=== PATIENT | male | born 1995 | race Caucasian/White ===

== ENCOUNTER 2025-05-01 19:24 | Inpatient (IN) | payer OTHER, SELFPAY ==
--- OUTSIDE RECORDS SUMMARY | 2025-05-01 19:30 | XMS_ITS | Encounter Summary ---
Author Organization [facility] Address [address] [place] [address] Care Team Providers Care Furrier Designer Name Role Phone Mabel Ortega NP Primary Care Provider [phone] Encounter Details Date Type Department Care Team (Late st Contact Info) Description 04/01/2025 Ophth Exam [facility] Ophthalmology [address] [place] [address] Bebeto Riggs MD [address] [place] [address] Social History Tobacco Use Types Packs/Day Years Used Date Smoking Tobacco: Never Smokeless Tobacco: Never Comments:intubated, sedated Alcohol Use Standard Drinks/Week Comments Not Currently 0 (1 standard drink = 0.6 oz pur e alcohol) Sex and Gender Information Value Date Recorded Sex Assigned at Male 10/22/2024 5:13 PM EST Legal Sex Male 1:42 AM EDT Gender Identity Not on file Sexual Orientation Not on file documented as of this encounter Plan of Treatment Not on file documented as of this encounter Visit Diagnoses Not on filedocumented in this encounter Additional Health Concerns Infection Onset Date Last Indicated Resolved Time R/O Respiratory Virus Infection 04/30/2025 04/30/2025 8:50 AM EDT R/O Influenza 04/30/2025 04/30/2025 04/30/2025 8:5 0 AM EDT COVID-19 - Suspected infection 04/30/2025 04/30/2025 04/30/2025 8:50 AM EDT documented as of this encounter Care Teams Furrier Designer Relationship Specialty Start Date End Date Mabel Ortega NP [address] [place] [phone] PCP - General 04/09/25 04/22/25 documented as of this encounter
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
--- OUTSIDE RECORDS SUMMARY | 2025-05-01 19:30 | XMS_ITS | Encounter Summary ---
Author Organization [facility] Address [address] [place] [address] Care Team Providers Care Managed Care Analyst Name Role Phone Moe Mccracken MD Primary Care Provider [phone] Pako Ross MD Primary Care Provider [facility] Unavailabl e Unavailable Encounter Details Date Type Department Care Team (Late st Contact Info) Description 01/25/2020 Orders Only [facility] Adult Medicine [address] [place] [phone] Iesha Mcdonnell, SUBACUTE NURSE Social History Tobacco Use Types Packs/Day Years Used Date Smoking Tobacco: Former Cigarettes Smokeless Tobacco: Never Alcohol Use Standard Drinks/Week Comments Not Currently 0 (1 standard drink = 0.6 oz pur e alcohol) Sex and Gender Information Value Date Recorded Sex Assigned at Not on file Legal Sex Male 8:37 PM EST Gender Identity Not on file Sexual Orientation Not on file 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 Unable to assess 01/24/2020 3:39 PM EDT documented as of this encounter Progress Notes * Moe Mccracken MD - 01/25/2020 1:36 PM EDT Diagnostic testing normal/stable. MyChart message sent encouraging follow up if symptoms persist. * Iesha Mcdonnell NP - 01/25/2020 1:36 PM EDT MyChart message sent, normal documented in this encounter Plan of Treatment Upcoming Encounters Date Type Department Care Team (Latest Contact Info) Description 09/30/2025 7:45 AM EST CPE - Comprehensive Physical Exam [facility] [address] [place] [phone] Yocasta Flynn PA [address] [place] [address] Return for CPE w/ any care team provider. documented as of this encounter Goals Goal Patient Goal Type Associated Problems Recent Progress Patient-Stated? Author Quit smoking / using tobacco Lifestyle No Lesli Saeed documented as of this encounter Procedures * Due to [place] state law, this organization might not be sharing negative HIV tests. Procedure Name Priority Date/Time Associated Diagnosis Comments C-REACTIVE PROTEIN (CRP) - INFLAMMATION STAT (All results called to provider) 01/25/2020 1:37 PM EDT Swelling of ankle, left Erythema of foot CBC INCLUDES DIFFERENTIAL AND PLATELET COUNT STAT (All results called to provider) 01/25/2020 1:37 PM EDT Swelling of ankle, left Erythema of foot VENIPUNCTURE STAT (All results called to provider) 01/25/2020 1:37 PM EDT Swelling of ankle, left Erythema of foot COMPREHENSIVE METABOLIC PANEL WITH GFR STAT (All results called to provider) 01/25/2020 1:37 PM EDT Swelling of ankle, left Erythema of foot NEISSERIA GONORRHOEAE (GC) RNA, TMA (URINE) STAT (All results called to provider) 01/25/2020 1:36 PM EDT Swelling of ankle, left Erythema of foot CHLAMYDIA TRACHOMATIS, RNA, TMA (URINE) STAT (All results called to provider) 01/25/2020 1:36 PM EDT Swelling of ankle, left Erythema of foot documented in this encounter Results * Due to [place] state law, this organization might not be sharing negative HIV tests. * CBC INCLUDES DIFFERENTIAL AND PLATELET COUNT (01/25/2020 1:37 PM EDT) WBC 6.4 3.8 - 10.8 K/uL [facility] Neutrophils # 3.3 1.5 - 7.8 K/uL [facility] Immature Granulocytes # 0.0 0.0 - 0.1 K/uL [facility] Lymphocytes # 1.9 0.9 - 3.9 K/uL [facility] Monocytes # 0.8 0.2 - 1.0 K/uL [facility] Eosinophils # 0.4 0.0 - 0.5 K/uL [facility] Basophils # 0.1 0.0 - 0.2 K/uL [facility] Neutrophils % 51.6 % [facility] Immature Granulocytes % 0.00 % [facility] Lymphocytes % 29.0 % [facility] Monocytes % 12.8 % [facility] Eosinophils % 5.8 % [facility] Basophils % 0.8 % [facility] RBC 4.70 4.20 - 5.80 M/uL [facility] Hemoglobin 13.3 13.2 - 17.1 g/dL [facility] Hematocrit 40.4 38.5 - 50.0 % [facility] MCV 86.0 80.0 - 100.0 fl [facility] MCH 28.3 27.0 - 33.0 pg [facility] MCHC 32.9 32.0 - 36.0 g/dL [facility] RDW 12.6 11.0 - 15.0 % [facility] PLT 211 140 - 400 K/uL [facility] 01/25/2020 1:37 PM EDT 01/25/2020 1:37 PM EDT Narrative [facility] - 01/25/2020 1:48 PM EDT Patient's primary care provider is: N/A Testing performed at: [facility], [address] [place] [address], [address], Press Tender: Av Vera MD Iesha Mcdonnell SUBACUTE NURSE LAB SAME DAY RESULT Final Re sult [address] [address] DIRECTOR Av Vera MD * COMPREHENSIVE METABOLIC PANEL WITH GFR (01/25/2020 1:37 PM EDT) Glucose 95 65 - 99 mg/dl [facility] Urea Nitrogen Blood (BUN) 9 7 - 25 mg/dL [facility] Creatinine 0.93 0.50 - 1.20 mg/dL [facility] Sodium 140 136 - 145 mmo/L [facility] Potassium 4.5 3.5 - 5.3 mmol/L [facility] Chloride 100 98 - 107 mmo/L [facility] Calcium 9.6 8.5 - 10.4 mg/dL [facility] Protein Total (Serum) 6.7 6.0 - 8.3 g/dL [facility] Albumin 4.5 3.5 - 5.3 g/dL [facility] Globulin 2 2 - 4 G/DL [facility] Bilirubin Total 0.47 0.00 - 1.20 mg/dL [facility] Alkaline phosphatase 51 40 - 115 U/L [facility] AST (SGOT) 29 <45 U/L [facility] ALT (SGPT) 21 <67 U/L [facility] Carbon dioxide 30 23 - 33 mmol/L [facility] GFR 104 >60 ml/min [facility] Comment:If the patient is Af rican Azerbaijani, please multiply result by 1.210 01/25/2020 1:37 PM EDT 01/25/2020 1:37 PM EDT Narrative [facility] - 01/25/2020 2:28 PM EDT Patient's primary care provider is: N/A Testing performed at: [facility], [address] [place] [address], [id number], Press Tender: Av Vera MD Iesha Mcdonnell NP LABORATORY Final Result Performing Organization Address [facility] de Phone Number [address] [address] DIRECTOR Av Vera MD * C-REACTIVE PROTEIN (CRP) - INFLAMMATION (01/25/2020 1:37 PM EDT) C reactive protein 2.8 0.0 - 8.0 mg/L [facility] 01/25/2020 1:37 PM EDT 01/25/2020 1:37 PM EDT Narrative [facility] - 01/25/2020 2:28 PM EDT Patient's primary care provider is: N/A Testing performed at: [facility], [address] [place] [address], [address], Press Tender: Av Vera MD Iesha Mcdonnell NP LABORATORY Final Result Performing Organization Address [facility] Phone Number [address] [address] DIRECTOR Av Vera MD * URIC ACID, SERUM (01/25/2020 1:37 PM EDT) Uric Acid Serum 4.9 4.0 - 8.0 mg/dL [facility] 01/25/2020 1:37 PM EDT 01/25/2020 1:37 PM EDT Narrative [facility] - 01/25/2020 2:28 PM EDT Patient's primary care provider is: N/A Testing performed at: [facility], [address] [place] [address], [address], Press Tender: Av Vera MD Iesha Mcdonnell NP LABORATORY Final Result [address] [address] DIRECTOR Av Vera MD * CHLAMYDIA TRACHOMATIS, RNA, TMA (URINE) (01/25/2020 1:36 PM EDT) Chlamydia trachomatis rRNA NOT DETECTED NOT DETECTED [facility] COMMENT SEE NOTE [facility] Comment: The analytical performance characteristics of this assay, when used to test SurePath(TM) specimens have been determined by [facility]. The modifications have not been cleared or approved by the FDA. This assay has been validated pursuant to the CLIA regulations and is used for clinical purposes. For additional information, please refer to https://Grovo.Jianjian/faq/YGV038 (This link is being provided for information/ educational purposes only.) 01/25/2020 1:36 PM EDT 01/26/2020 3:10 AM EDT Narrative Resulting Agency Comment [id number] Iesha Mcdonnell NP LABORATORY Final Result Performing Organization Address [facility] Co de Phone Number [facility] [address] [place] [address] * NEISSERIA GONORRHOEAE (GC) RNA, TMA (URINE) (01/25/2020 1:36 PM EDT) Neisseria Gonorrhoeae rRNA NOT DETECTED NOT DETECTED [facility] COMMENT SEE NOTE [facility] Comment: The analytical performance characteristics of this assay, when used to test SurePath(TM) specimens have been determined by [facility]. The modifications have not been cleared or approved by the FDA. This assay has been validated pursuant to the CLIA regulations and is used for clinical purposes. For additional information, please refer to https://Grovo.Jianjian/faq/YLB760 (This link is being provided for information/ educational purposes only.) 01/25/2020 1:36 PM EDT 01/26/2020 3:10 AM EDT Narrative Resulting Agency Comment [id number] Iesha Mcdonnell SUBACUTE NURSE LABORATORY Final Result [facility] [address] [place] [address] documented in this encounter Visit Diagnoses Diagnosis Swelling of ankle, left Erythema of foot Unspecified erythematous condition documented in this encounter Additional Health Concerns Infection Onset Date Last Indicated Resolved Time COVID-19 Rule-Out 11/28/2020 11/28/2020 11/28/2020 12:42 AM EST COVID-19 Rule-Out 11/28/2020 11/28/2020 11/28/2020 8:15 AM EST COVID-19 Rule-Out 12/02/2020 12/02/2020 12/02/2020 1:16 PM EST COVID-19 Rule-Out 12/05/2020 12/05/2020 12/05/2020 10:08 PM EST COVID-19 Rule-Out 12/08/2020 12/08/2020 12/08/2020 10:00 PM EDT documented as of this encounter Care Teams Managed Care Analyst Relationship Specialty Start Date End Date Moe Mccracken MD [address] [place] [phone] PCP - General Internal Medicine 12/10/15 02/07/20 Pako Rsos MD [address] [place] [address] PCP - General 02/08/20 [facility] Health Assistants 03/26/22 08/25/22 documented as of this encounter
--- OUTSIDE RECORDS SUMMARY | 2025-05-01 19:30 | XMS_ITS | Clinical Summary ---
Author Organization [facility] Address [address] [place] [address] Care Team Providers Care Civil Engineering Draftsperson Name Role Phone No, Pcp JOURNEYMAN POWER PLANT OPERATOR Primary Care Provider Unavailabl e Social History Tobacco Use Types Packs/Day Years Used Date Smoking Tobacco: Never Assessed Sex and Gender Information Value Date Recorded Sex Assigned at Not on file Legal Sex Male 12:31 PM EDT Gender Identity Not on file Sexual Orientation Not on file Plan of Treatment Health Maintenance Due Date Last Done Comments Depression: Screening Annual ly using PHQ-2/9 in Adults 18 yrs or above (or HM Modifier)([facility]) 12/11/2011 Hepatitis C Virus Infection in Adolescents and Adults: Screening (or Modifier) ([facility]) 12/11/2011 SDOH Screening Reminder: Rosario ually for all adults ([facility]) 12/11/2011 Tobacco Smoking Cessation: i n Adults excluding Women: Behavioral and Pharmacotherapy Interventions ([facility]) 12/11/2011 DTaP/Tdap/Td Vaccines ([facility]) (1 - Tdap) 2012 COVID-19 Vaccine Screening: Initial Series and Booster Status ([facility]) (2023- season) 2024 Flu Vaccination: Yearly for ages 18mos through 64 years (or Modifier)([facility]) 04/26/2025 Zoster/Shingles Vaccine Seri es Screening: Adults aged 18+ yrs (or HM Modifiers)([facility]) (1 of 2) 12/11/2043 Pneumococcal Vaccination Scr eening: Pts 0-19 & 19-49 yrs of age ([facility]) Aged Out No longer eligible based on patient's age to complete this topic Medical Devices Not on file [place] [address] [place] [address] PLAN Care Teams Civil Engineering Draftsperson Relationship Specialty Start Date End Date No, Pcp, JOURNEYMAN POWER PLANT OPERATOR N/A Do not use PCP - General Family Medicine 12/30/20
[2025-05-01 20:06] VITALS: BMI 18.9
[2025-05-01 20:10] VITALS: BP 105/62; PULSE 72; RESP 16; TEMP 36.2; O2SAT 97
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
[2025-05-02 08:00] VITALS: BP 115/59; PULSE 86; TEMP 36.6; O2SAT 99
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
[2025-05-02] MEDS: Magnesium Hydrox/Alum Hydrox 30 ML ORAL.SUSP PO (08:54)
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
[2025-05-02] MEDS: methADONE HCl 20 MG/2 ML ORAL.CONC 40 MG PO (11:08)
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
[2025-05-02 15:10] VITALS: BP 78/56; PULSE 52
[2025-05-02 15:38] VITALS: BP 87/54; PULSE 56
--- NOTE | 2025-05-02 15:42 | PC.ADMIT ---
BP assessed for scheduled afternoon medication administration. Decreased BP noted. Pt reported dizziness with position change. Medication held. Pt accepted PO fluids and snacks. Some improvement noted to BP on reassessment. Covering provider Jacqueline Pace [employer] notified.
[2025-05-02 16:13] VITALS: BP 80/51
[2025-05-02 20:00] VITALS: BP 88/45; PULSE 59; RESP 16; TEMP 37.7; O2SAT 100
[2025-05-02 21:12] VITALS: BP 75/36
[2025-05-03 08:00] VITALS: BP 101/51; PULSE 77; RESP 16; TEMP 36.4; O2SAT 100
[2025-05-03] MEDS: methADONE HCl 20 MG/2 ML ORAL.CONC 40 MG PO (08:11)
[2025-05-03 09:49] VITALS: BP 93/55
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
[2025-05-03 15:51] VITALS: BP 98/47
--- NOTE | 2025-05-03 16:14 | P.PNADD_ITS ---
Subjective Subjective Date of Service: 05/03/25 Reason For Visit: bipolar 1 disorder, generalized anxiety d/o Interim History: Patient seen in follow up for OUD He is laying in bed, awake, engaged in interview. He reports methadone has helped to reduce the most severe sx, and he is able to eat and get out of bed. Discussed increasing dose, but he declined and stated that his plan is to taper off prior to discharge. He shared that his recurrence of use was very recent and brief and he does not want to remain on MOUD. This medical writer encouraged patient to remain at this dose over the weekend, and start taper on Tuesday. Patient agreeable. Review of Systems Constitutional: Reports as per HPI and Reports lethargy Gastrointestinal: Denies loose stools and Denies nausea Musculoskeletal: Reports myalgias Mental Status Exam Mental Status Exam Level of Consciousness: Awake Patient Behavior: Appropriate and Cooperative Affect Description: Blunted Speech Pattern: Clear Thought Process: Intact Thought Content: positive for Intact Judgement: Fair Diagnostics Vital Signs (24Hr): Vital Signs - 24 hr 05/02/25 20:00 05/02/25 21:12 05/03/25 09:49 Temperature 99.9 F Pulse Rate 59 Respiratory Rate 16 Blood Pressure 88/45 L 75/36 L 93/55 L Pulse Oximetry 100 Oxygen Delivery Method Room Air 05/03/25 15:51 Temperature Pulse Rate Respiratory Rate Blood Pressure 98/47 L Pulse Oximetry Oxygen Delivery Method BMI result Body Mass Index 18.9 Medications Medications Current Medications Acetaminophen (Acetaminophen 325 Mg Tablet) 650 mg PO Q6H PRN PRN Reason: Headache/Pain, Scale 1-10 Al Hydroxide/Mg Hydroxide (Magnesium Hydrox/Alum Hydrox 30 Ml Oral.Susp) 30 ml PO Q6H PRN PRN Reason: Heartburn/Nausea Last Admin: 05/02/25 08:54 Dose: 30 ml Clonidine HCl (Clonidine Hcl 0.2 Mg Tablet) 0.2 mg PO TID KERVIN; Protocol Last Admin: 05/03/25 15:51 Dose: Not Given Diazepam (Diazepam 5 Mg Tablet) 10 mg PO TID PRN PRN Reason: Agitation Last Admin: 05/03/25 09:48 Dose: 10 mg Gabapentin (Gabapentin 600 Mg Tablet) 300 mg PO TID [facility]IN Last Admin: 05/03/25 15:51 Dose: 300 mg Hydroxyzine HCl (Hydroxyzine Hcl 25 Mg Tablet) 25 mg PO Q6H PRN PRN Reason: mild anxiety Last Admin: 05/02/25 21:09 Dose: 25 mg Lamotrigine (Lamotrigine 25 Mg Tablet) 25 mg PO BEDTIME [facility] Magnesium Hydroxide (Milk Of Magnesia 30 Ml Oral.Susp) 30 ml PO DAILY PRN PRN Reason: Constipation Methadone HCl (Methadone Hcl 20 Mg/2 Ml Oral.Conc) 40 mg PO DAILY@0800 [facility] Last Admin: 05/03/25 08:11 Dose: 40 mg Nicotine (Nicotine 21 Mg Patch.Td24) 21 mg TRANSDERMA DAILY PRN PRN Reason: nicotine craving Nicotine Polacrilex (Nicotine Polacrilex 2 Mg Gum) 2 mg BUCCAL Q2H PRN PRN Reason: Nicotine Cravings Last Admin: 05/02/25 11:15 Dose: 2 mg Olanzapine (Olanzapine 5 Mg Tablet) 5 mg PO Q4H PRN PRN Reason: agitation/psychosis Oxycodone HCl (Oxycodone Hcl Immed Release 5 Mg Tablet) 5 mg PO Q8H PRN PRN Reason: severe pain Risperidone (Risperidone 1 Mg Tablet) 1 mg PO BID [facility] Last Admin: 05/03/25 12:16 Dose: 1 mg Trazodone HCl (Trazodone Hcl 50 Mg Tablet) 50 mg PO BEDTIME MRX1 PRN PRN Reason: Insomnia Last Admin: 05/02/25 21:09 Dose: 50 mg Allergies Allergies Allergy/AdvReac Type Severity Reaction Status Date / Time Latex, Natural Rubber Allergy Rash Verified 05/01/25 19:52 Assessment & Plan Assessment & Plan (1) Opioid use disorder, severe, dependence: Status: Acute Code(s): F11.20 - Opioid dependence, uncomplicated Assessment and Plan: * methadone to remain at 40mg. Tuesday AM 35mg and reassess Total time managing care of this patient today ___20_ minutes.
[2025-05-03 20:00] VITALS: BP 89/42; PULSE 98; TEMP 36.6; O2SAT 98
[2025-05-03 21:07] VITALS: BP 89/42
[2025-05-04] MEDS: methADONE HCl 20 MG/2 ML ORAL.CONC 40 MG PO (07:57)
[2025-05-04 08:00] VITALS: BP 106/62; PULSE 69; RESP 20; TEMP 35.9; O2SAT 98
[2025-05-04 09:43] VITALS: BP 108/62
[2025-05-04] MEDS: Magnesium Hydrox/Alum Hydrox 30 ML ORAL.SUSP PO (16:07)
[2025-05-04 16:09] VITALS: BP 92/54
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
[2025-05-04 19:45] VITALS: BP 89/52; PULSE 81; TEMP 36.1; O2SAT 96
[2025-05-05] MEDS: methADONE HCl 20 MG/2 ML ORAL.CONC 40 MG PO (07:56)
[2025-05-05 08:00] VITALS: BP 89/46; PULSE 67; TEMP 36.3; O2SAT 98
--- NOTE | 2025-05-05 09:23 | P.PNPSI_ITS ---
Subjective Subjective Date of Service: 05/05/25 Reason For Visit: bipolar 1 disorder, generalized anxiety d/o Interim History: Patient feels withdrawals are well controlled and hopeful he can lower Methadone and possibly DC before he leaves. He is concerned about [place] paperwork being submitted for his work so he doesn't lose his job. He feels overall improved compared to presentation. Denies SI/HI/AVH. Risperidone helps. Review of Systems Review of Systems Opiate withdrawal Constitutional: Reports as per HPI, Reports no additional constitutional complaints and Reports lethargy Gastrointestinal: Denies loose stools and Denies nausea Musculoskeletal: Reports myalgias Mental Status Exam Mental Status Exam Narrative: Active withdrawal, just responding to Methadone dose given Patient Appearance: Disheveled Patient Orientation: Person, Place, Time and Situation Level of Consciousness: Awake Patient Behavior: Appropriate, Talkative, Cooperative and Distractible Mood Description: Withdrawn and Depressed Affect Description: Withdrawn and Flat Patient Cognition Impaired: No Ability to Follow Directions: Good Speech Pattern: Spontaneous Speech Memory Description: Episodic Impaired Diagnostics Vital Signs (24Hr): Vital Signs - 24 hr 05/04/25 09:43 05/04/25 16:09 05/04/25 19:45 Temperature 97.0 F Pulse Rate 81 Blood Pressure 108/62 92/54 L 89/52 L Pulse Oximetry 96 Oxygen Delivery Method Room Air 05/05/25 08:00 Temperature 97.4 F Pulse Rate 67 Blood Pressure 89/46 L Pulse Oximetry 98 Oxygen Delivery Method Room Air BMI result Body Mass Index 18.9 Medications Medications Current Medications Acetaminophen (Acetaminophen 325 Mg Tablet) 650 mg PO Q6H PRN PRN Reason: Headache/Pain, Scale 1-10 Al Hydroxide/Mg Hydroxide (Magnesium Hydrox/Alum Hydrox 30 Ml Oral.Susp) 30 ml PO Q6H PRN PRN Reason: Heartburn/Nausea Last Admin: 05/04/25 16:07 Dose: 30 ml Calcium Carbonate (Calcium Carbonate 750 Mg Tab.Chew) 750 mg PO Q6H PRN PRN Reason: Heartburn Last Admin: 05/04/25 16:35 Dose: 750 mg Clonidine HCl (Clonidine Hcl 0.2 Mg Tablet) 0.2 mg PO TID [facility]ERVIN; Protocol Last Admin: 05/05/25 08:44 Dose: 0.2 mg Diazepam (Diazepam 5 Mg Tablet) 10 mg PO TID PRN PRN Reason: Agitation Last Admin: 05/05/25 08:43 Dose: 10 mg Gabapentin (Gabapentin 600 Mg Tablet) 300 mg PO TID [facility] Last Admin: 05/05/25 08:44 Dose: 300 mg Hydroxyzine HCl (Hydroxyzine Hcl 25 Mg Tablet) 25 mg PO Q6H PRN PRN Reason: mild anxiety Last Admin: 05/04/25 20:33 Dose: 25 mg Lamotrigine (Lamotrigine 25 Mg Tablet) 25 mg PO BEDTIME [facility] Last Admin: 05/04/25 20:33 Dose: 25 mg Magnesium Hydroxide (Milk Of Magnesia 30 Ml Oral.Susp) 30 ml PO DAILY PRN PRN Reason: Constipation Methadone HCl (Methadone Hcl 20 Mg/2 Ml Oral.Conc) 40 mg PO DAILY@0800 [facility] Last Admin: 05/05/25 07:56 Dose: 25 mg Nicotine (Nicotine 21 Mg Patch.Td24) 21 mg TRANSDERMA DAILY PRN PRN Reason: nicotine craving Nicotine Polacrilex (Nicotine Polacrilex 2 Mg Gum) 4 mg BUCCAL Q2H PRN PRN Reason: Nicotine Cravings Olanzapine (Olanzapine 5 Mg Tablet) 5 mg PO Q4H PRN PRN Reason: agitation/psychosis Oxycodone HCl (Oxycodone Hcl Immed Release 5 Mg Tablet) 5 mg PO Q8H PRN PRN Reason: severe pain Risperidone (Risperidone 1 Mg Tablet) 1 mg PO BID [facility] Last Admin: 05/05/25 08:44 Dose: 1 mg Trazodone HCl (Trazodone Hcl 50 Mg Tablet) 50 mg PO BEDTIME MRX1 PRN PRN Reason: Insomnia Last Admin: 05/04/25 20:33 Dose: 50 mg Allergies Allergies Allergy/AdvReac Type Severity Reaction Status Date / Time Latex, Natural Rubber Allergy Rash Verified 05/01/25 19:52 Assessment & Plan Assessment & Plan (1) Bipolar disorder: Status: Acute Code(s): F31.9 - Bipolar disorder, unspecified (2) Opioid use disorder, severe, dependence: Status: Acute Code(s): F11.20 - Opioid dependence, uncomplicated Plan Admit, CV, 15 minute checks Addiction Consult much appreciated, Methadone initiated Diagnostics as needed Collateral Contact Continue current regime Encourage milieu participation when feeling improved Discharge planning. 05/03/25: Lamictal 25 mg HS Risperdal 1 mg bid 05/04: continue current management and treatment plan. 05/05: continue current management and treatment plan. Reason for continued inpatient stay Substantial Risk for: harm to self, inability to function and rapid decompensation Time Spent With Patient Time: Total time managing care of this patient today ____ minutes.
[2025-05-05 14:37] VITALS: BP 109/59
--- NOTE | 2025-05-05 16:39 | MHC.RECOVRN ---
T/W met with pt. in group room to provide ongoing support and educaiton. Pt continues to verbalize the goal of tapering off his methadone. He was able to verbalize a 2 year period of methadone use with sobriety. T/W provided pt with education on neuro of addiction along with long-term vs. short term use of MOUD for sustained recovery. Pt. declined need for any further services/resources at this time. ACS available PRN.
[2025-05-05 19:46] VITALS: BP 95/55; PULSE 82; RESP 15; TEMP 36.2; O2SAT 98
[2025-05-05 20:15] VITALS: BP 100/50
[2025-05-06] MEDS: methADONE HCl 20 MG/2 ML ORAL.CONC 40 MG PO (07:41)
[2025-05-06 08:37] VITALS: BP 127/60; PULSE 96; RESP 16; TEMP 36.4; O2SAT 98
--- NOTE | 2025-05-06 10:10 | HO.PSYCHPN ---
Subjective Subjective Date of Service: 05/06/25 Reason For Visit: bipolar 1 disorder, generalized anxiety d/o Subjective Notes: Conditional Voluntary Healthcare Proxy: No Guardianship: No Medical Problems Affecting Mental Status: No Interim History: Tapering Methadone with the guidance of addiction medicine. Reports lamictal/risperdal are effective and without SE. Completed FMLA paperwork Pt reports feeling improved, less depressed. He reports being able to sleep, thoughts are quieter and he has been able to attend a few groups with positive outcome. Will continue with current regime Medication Compliance: Yes Side effects from medications: No Attending Groups: Intermittent Review of Systems Acute medical concerns: No Review of Systems Review of Systems Denies Mental Status Exam Mental Status Exam Patient Appearance: Appropriate Patient Orientation: Person, Place, Time and Situation Level of Consciousness: Alert Patient Behavior: Talkative and Good Eye Contact Mood Description: Constricted Affect Description: Constricted Patient Cognition Impaired: No Ability to Follow Directions: Good Speech Pattern: Spontaneous Speech Memory Description: Intact Hallucinations: None (denies today) Delusions: Not Present Thought Process: Distracted and Goal Oriented Thought Content: positive for Circumstantial, positive for Goal Oriented and positive for Suicidal Ideation (denies) Depressive Symptoms: Thoughts of /Suicide (denies), Low Self Esteem and Loss of Energy Judgement: Fair Diagnostics Vital Signs (24Hr): Vital Signs - 24 hr 05/05/25 14:37 05/05/25 19:46 05/05/25 20:15 Temperature 97.1 F Pulse Rate 82 Respiratory Rate 15 Blood Pressure 109/59 L 95/55 L 100/50 L Pulse Oximetry 98 Oxygen Delivery Method 05/06/25 08:37 Temperature 97.6 F Pulse Rate 96 Respiratory Rate 16 Blood Pressure 127/60 Pulse Oximetry 98 Oxygen Delivery Method Room Air BMI result Body Mass Index 18.9 Medications Medications Current Medications Acetaminophen (Acetaminophen 325 Mg Tablet) 650 mg PO Q6H PRN PRN Reason: Headache/Pain, Scale 1-10 Al Hydroxide/Mg Hydroxide (Magnesium Hydrox/Alum Hydrox 30 Ml Oral.Susp) 30 ml PO Q6H PRN PRN Reason: Heartburn/Nausea Last Admin: 05/04/25 16:07 Dose: 30 ml Calcium Carbonate (Calcium Carbonate 750 Mg Tab.Chew) 750 mg PO Q6H PRN PRN Reason: Heartburn Last Admin: 05/04/25 16:35 Dose: 750 mg Clonidine HCl (Clonidine Hcl 0.2 Mg Tablet) 0.2 mg PO TID [facility]; Protocol Last Admin: 05/06/25 08:36 Dose: Not Given Diazepam (Diazepam 5 Mg Tablet) 10 mg PO TID PRN PRN Reason: Agitation Last Admin: 05/06/25 08:28 Dose: 10 mg Gabapentin (Gabapentin 600 Mg Tablet) 300 mg PO TID [facility] Last Admin: 05/06/25 08:23 Dose: 300 mg Hydroxyzine HCl (Hydroxyzine Hcl 25 Mg Tablet) 25 mg PO Q6H PRN PRN Reason: mild anxiety Last Admin: 05/04/25 20:33 Dose: 25 mg Lamotrigine (Lamotrigine 25 Mg Tablet) 25 mg PO BEDTIME [facility] Last Admin: 05/05/25 20:19 Dose: 25 mg Magnesium Hydroxide (Milk Of Magnesia 30 Ml Oral.Susp) 30 ml PO DAILY PRN PRN Reason: Constipation Methadone HCl (Methadone Hcl 20 Mg/2 Ml Oral.Conc) 40 mg PO DAILY@0800 [facility] Last Admin: 05/06/25 07:41 Dose: 20 mg Nicotine (Nicotine 21 Mg Patch.Td24) 21 mg TRANSDERMA DAILY PRN PRN Reason: nicotine craving Nicotine Polacrilex (Nicotine Polacrilex 2 Mg Gum) 4 mg BUCCAL Q2H PRN PRN Reason: Nicotine Cravings Last Admin: 05/05/25 14:36 Dose: 4 mg Olanzapine (Olanzapine 5 Mg Tablet) 5 mg PO Q4H PRN PRN Reason: agitation/psychosis Oxycodone HCl (Oxycodone Hcl Immed Release 5 Mg Tablet) 5 mg PO Q8H PRN PRN Reason: severe pain Risperidone (Risperidone 1 Mg Tablet) 1 mg PO BID [facility] Last Admin: 05/06/25 08:23 Dose: 1 mg Trazodone HCl (Trazodone Hcl 50 Mg Tablet) 50 mg PO BEDTIME MRX1 PRN PRN Reason: Insomnia Last Admin: 05/04/25 20:33 Dose: 50 mg Allergies Allergies Allergy/AdvReac Type Severity Reaction Status Date / Time Latex, Natural Rubber Allergy Rash Verified 05/01/25 19:52 Assessment & Plan Assessment & Plan (1) Bipolar disorder: Status: Acute Code(s): F31.9 - Bipolar disorder, unspecified (2) Opioid use disorder, severe, dependence: Status: Acute Code(s): F11.20 - Opioid dependence, uncomplicated Plan Admit, CV, 15 minute checks Addiction Consult much appreciated, Methadone initiated Diagnostics as needed Collateral Contact Continue current regime Encourage milieu participation when feeling improved Discharge planning. 05/03/25: Lamictal 25 mg HS Risperdal 1 mg bid 05/04: continue current management and treatment plan. 05/05: continue current management and treatment plan. 05/06: Methadone tapering with addiction medicine Continue current psychotropic regime [place] paperwork completed. Reason for continued inpatient stay Substantial Risk for: rapid decompensation Time Spent With Patient Time: Total time managing care of this patient today ____ minutes.
--- NOTE | 2025-05-06 11:16 | PM.EVENT ---
Event Note Date of Service: 05/06/25 Event Note: Addiciton follow up Patient has been self tapering methadone dose Down to 20mg today Plan: -15mg 05/07 -10mg 05/06 and d/c Will require overdose prevention discussion prior to discharge as risk for OD with no MOUD and period of abstinence is much higher. Time Spent With Patient Time: Total time managing care of this patient today ____ minutes.
[2025-05-06 20:00] VITALS: BP 142/84; PULSE 102; TEMP 36.7; O2SAT 100
[2025-05-06 20:53] VITALS: BP 142/84
[2025-05-07] MEDS: methADONE HCl 20 MG/2 ML ORAL.CONC 15 MG PO (07:42)
[2025-05-07 08:00] VITALS: BP 103/51; PULSE 80; TEMP 36.8; O2SAT 97
[2025-05-07 08:41] VITALS: BP 103/51
--- NOTE | 2025-05-07 11:13 | P.PNPSI_ITS ---
Subjective Subjective Date of Service: 05/07/25 Reason For Visit: bipolar 1 disorder, generalized anxiety d/o Subjective Notes: Conditional Voluntary Healthcare Proxy: No Guardianship: No Medical Problems Affecting Mental Status: No Interim History: Planning discharge for 05/11. Feels like he is back on track, not feeling overmedicated. Tapering Methadone. Asks to change Clonidine to prn. Will pursue Valium tapering when he returns to out pt. Plans a return to work next week. Denies SI,HI,AH, VH. No sx of acute joseph or psychosis. Engaged with peers in the milieu. Medication Compliance: Yes Side effects from medications: No Attending Groups: Intermittent Review of Systems Acute medical concerns: No Review of Systems Review of Systems Denies Mental Status Exam Mental Status Exam Patient Appearance: Appropriate Patient Orientation: Person, Place, Time and Situation Level of Consciousness: Alert Patient Behavior: Talkative and Good Eye Contact Mood Description: Constricted Affect Description: Constricted Patient Cognition Impaired: No Ability to Follow Directions: Good Speech Pattern: Spontaneous Speech Memory Description: Intact Hallucinations: None (denies today) Delusions: Not Present Thought Process: Distracted and Goal Oriented Thought Content: positive for Circumstantial, positive for Goal Oriented and positive for Suicidal Ideation (denies) Depressive Symptoms: Thoughts of /Suicide (denies), Low Self Esteem and Loss of Energy Judgement: Fair Diagnostics Vital Signs (24Hr): Vital Signs - 24 hr 05/06/25 20:00 05/06/25 20:53 05/07/25 08:41 Temperature 98.0 F Pulse Rate 102 H Blood Pressure 142/84 H 142/84 H 103/51 L Pulse Oximetry 100 Oxygen Delivery Method Room Air BMI result Body Mass Index 18.9 Medications Medications Current Medications Acetaminophen (Acetaminophen 325 Mg Tablet) 650 mg PO Q6H PRN PRN Reason: Headache/Pain, Scale 1-10 Al Hydroxide/Mg Hydroxide (Magnesium Hydrox/Alum Hydrox 30 Ml Oral.Susp) 30 ml PO Q6H PRN PRN Reason: Heartburn/Nausea Last Admin: 05/04/25 16:07 Dose: 30 ml Calcium Carbonate (Calcium Carbonate 750 Mg Tab.Chew) 750 mg PO Q6H PRN PRN Reason: Heartburn Last Admin: 05/04/25 16:35 Dose: 750 mg Diazepam (Diazepam 5 Mg Tablet) 10 mg PO TID PRN PRN Reason: Agitation Last Admin: 05/07/25 08:47 Dose: 10 mg Gabapentin (Gabapentin 600 Mg Tablet) 300 mg PO TID [facility] Last Admin: 05/07/25 08:41 Dose: 300 mg Hydroxyzine HCl (Hydroxyzine Hcl 25 Mg Tablet) 25 mg PO Q6H PRN PRN Reason: mild anxiety Last Admin: 05/04/25 20:33 Dose: 25 mg Lamotrigine (Lamotrigine 25 Mg Tablet) 25 mg PO BEDTIME [facility] Last Admin: 05/06/25 20:53 Dose: 25 mg Magnesium Hydroxide (Milk Of Magnesia 30 Ml Oral.Susp) 30 ml PO DAILY PRN PRN Reason: Constipation Methadone HCl (Methadone Hcl 20 Mg/2 Ml Oral.Conc) 10 mg PO ONCE ONE Stop: 05/08/25 08:01 Nicotine (Nicotine 21 Mg Patch.Td24) 21 mg TRANSDERMA DAILY PRN PRN Reason: nicotine craving Nicotine Polacrilex (Nicotine Polacrilex 2 Mg Gum) 4 mg BUCCAL Q2H PRN PRN Reason: Nicotine Cravings Last Admin: 05/06/25 11:16 Dose: 4 mg Olanzapine (Olanzapine 5 Mg Tablet) 5 mg PO Q4H PRN PRN Reason: agitation/psychosis Oxycodone HCl (Oxycodone Hcl Immed Release 5 Mg Tablet) 5 mg PO Q8H PRN PRN Reason: severe pain Risperidone (Risperidone 1 Mg Tablet) 1 mg PO BID [facility] Last Admin: 05/07/25 08:42 Dose: 1 mg Trazodone HCl (Trazodone Hcl 50 Mg Tablet) 50 mg PO BEDTIME MRX1 PRN PRN Reason: Insomnia Last Admin: 05/06/25 20:53 Dose: 50 mg Allergies Allergies Allergy/AdvReac Type Severity Reaction Status Date / Time Latex, Natural Rubber Allergy Rash Verified 05/01/25 19:52 Assessment & Plan Assessment & Plan (1) Bipolar disorder: Status: Acute Code(s): F31.9 - Bipolar disorder, unspecified (2) Opioid use disorder, severe, dependence: Status: Acute Code(s): F11.20 - Opioid dependence, uncomplicated Plan Admit, CV, 15 minute checks Addiction Consult much appreciated, Methadone initiated Diagnostics as needed Collateral Contact Continue current regime Encourage milieu participation when feeling improved Discharge planning. 05/03/25: Lamictal 25 mg HS Risperdal 1 mg bid 05/04: continue current management and treatment plan. 05/05: continue current management and treatment plan. 05/06: Methadone tapering with addiction medicine Continue current psychotropic regime [facility] paperwork completed. 05/07: Change clonidine to prn dosing DC 05/11 planned Reason for continued inpatient stay Substantial Risk for: rapid decompensation Time Spent With Patient Time: Total time managing care of this patient today ____ minutes.
[2025-05-07 17:40] VITALS: BP 120/69
[2025-05-08 08:00] VITALS: BP 97/54; PULSE 80; TEMP 37.2; O2SAT 97
[2025-05-08] MEDS: methADONE HCl 20 MG/2 ML ORAL.CONC 10 MG PO (09:20)
--- NOTE | 2025-05-08 10:14 | HO.PSYCHPN ---
Subjective Subjective Date of Service: 05/08/25 Reason For Visit: bipolar 1 disorder, generalized anxiety d/o Subjective Notes: Conditional Voluntary Healthcare Proxy: No Guardianship: No Medical Problems Affecting Mental Status: No Interim History: Reviewed reports from pt's mother that he was using steroids prior to admission. Pt denies, do I look like I have been using steroids? Prepared for discharge, plans a return to work and to community addiction supports (meetings). Positive in his transition plans today. Medication Compliance: Yes Side effects from medications: No Attending Groups: Yes Review of Systems Acute medical concerns: No Review of Systems Review of Systems Denies Mental Status Exam Mental Status Exam Patient Appearance: Appropriate Patient Orientation: Person, Place, Time and Situation Level of Consciousness: Alert Patient Behavior: Talkative and Good Eye Contact Mood Description: Constricted Affect Description: Constricted Patient Cognition Impaired: No Ability to Follow Directions: Good Speech Pattern: Spontaneous Speech Memory Description: Intact Hallucinations: None (denies today) Delusions: Not Present Thought Process: Distracted and Goal Oriented Thought Content: positive for Circumstantial, positive for Goal Oriented and positive for Suicidal Ideation (denies) Depressive Symptoms: Thoughts of /Suicide (denies), Low Self Esteem and Loss of Energy Judgement: Fair Diagnostics Vital Signs (24Hr): Vital Signs - 24 hr 05/07/25 17:40 05/08/25 08:00 Temperature 99 F Pulse Rate 80 Blood Pressure 120/69 97/54 L Pulse Oximetry 97 Oxygen Delivery Method Room Air BMI result Body Mass Index 18.9 Medications Medications Current Medications Acetaminophen (Acetaminophen 325 Mg Tablet) 650 mg PO Q6H PRN PRN Reason: Headache/Pain, Scale 1-10 Al Hydroxide/Mg Hydroxide (Magnesium Hydrox/Alum Hydrox 30 Ml Oral.Susp) 30 ml PO Q6H PRN PRN Reason: Heartburn/Nausea Last Admin: 05/04/25 16:07 Dose: 30 ml Calcium Carbonate (Calcium Carbonate 750 Mg Tab.Chew) 750 mg PO Q6H PRN PRN Reason: Heartburn Last Admin: 05/04/25 16:35 Dose: 750 mg Clonidine HCl (Clonidine Hcl 0.1 Mg Tablet) 0.1 mg PO BID PRN; Protocol PRN Reason: anxiety Last Admin: 05/07/25 17:40 Dose: 0.1 mg Diazepam (Diazepam 5 Mg Tablet) 10 mg PO TID PRN PRN Reason: Agitation Last Admin: 05/08/25 09:23 Dose: 10 mg Gabapentin (Gabapentin 600 Mg Tablet) 300 mg PO TID [facility] Last Admin: 05/08/25 09:24 Dose: 300 mg Hydroxyzine HCl (Hydroxyzine Hcl 25 Mg Tablet) 25 mg PO Q6H PRN PRN Reason: mild anxiety Last Admin: 05/04/25 20:33 Dose: 25 mg Lamotrigine (Lamotrigine 25 Mg Tablet) 25 mg PO BEDTIME [facility] Last Admin: 05/07/25 20:50 Dose: 25 mg Magnesium Hydroxide (Milk Of Magnesia 30 Ml Oral.Susp) 30 ml PO DAILY PRN PRN Reason: Constipation Nicotine (Nicotine 21 Mg Patch.Td24) 21 mg TRANSDERMA DAILY PRN PRN Reason: nicotine craving Nicotine Polacrilex (Nicotine Polacrilex 2 Mg Gum) 4 mg BUCCAL Q2H PRN PRN Reason: Nicotine Cravings Last Admin: 05/07/25 11:10 Dose: 4 mg Olanzapine (Olanzapine 5 Mg Tablet) 5 mg PO Q4H PRN PRN Reason: agitation/psychosis Oxycodone HCl (Oxycodone Hcl Immed Release 5 Mg Tablet) 5 mg PO Q8H PRN PRN Reason: severe pain Risperidone (Risperidone 1 Mg Tablet) 1 mg PO BID [facility] Last Admin: 05/08/25 09:20 Dose: 1 mg Trazodone HCl (Trazodone Hcl 50 Mg Tablet) 50 mg PO BEDTIME MRX1 PRN PRN Reason: Insomnia Last Admin: 05/07/25 20:50 Dose: 50 mg Allergies Allergies Allergy/AdvReac Type Severity Reaction Status Date / Time Latex, Natural Rubber Allergy Rash Verified 05/01/25 19:52 Assessment & Plan Assessment & Plan (1) Bipolar disorder: Status: Acute Code(s): F31.9 - Bipolar disorder, unspecified (2) Opioid use disorder, severe, dependence: Status: Acute Code(s): F11.20 - Opioid dependence, uncomplicated Plan Admit, CV, 15 minute checks Addiction Consult much appreciated, Methadone initiated Diagnostics as needed Collateral Contact Continue current regime Encourage milieu participation when feeling improved Discharge planning. 05/03/25: Lamictal 25 mg HS Risperdal 1 mg bid 05/04: continue current management and treatment plan. 05/05: continue current management and treatment plan. 05/06: Methadone tapering with addiction medicine Continue current psychotropic regime FMLA paperwork completed. 05/08: Continue tx Reason for continued inpatient stay Substantial Risk for: rapid decompensation Time Spent With Patient Time: Total time managing care of this patient today ____ minutes.
[2025-05-08 16:03] VITALS: BP 102/60
[2025-05-08 20:00] VITALS: BP 107/57; PULSE 108; RESP 16; TEMP 36.6; O2SAT 98
[2025-05-08 20:49] VITALS: BP 107/57
[2025-05-09 07:00] VITALS: BMI 22.5
[2025-05-09 08:00] VITALS: BP 113/56; PULSE 82; RESP 18; TEMP 36.3; O2SAT 98
--- NOTE | 2025-05-09 09:42 | P.PNPSI_ITS ---
Subjective Subjective Date of Service: 05/09/25 Reason For Visit: bipolar 1 disorder, generalized anxiety d/o Subjective Notes: Conditional Voluntary Healthcare Proxy: No Guardianship: No Medical Problems Affecting Mental Status: No Interim History: Visable in milieu, interactive with a small peer group, some group attendance. Focus is on discharge and return to work next week. Pt plans to return to his OP team and community addiction supports, NA/AA Medication Compliance: Yes Side effects from medications: No Attending Groups: Intermittent Review of Systems Acute medical concerns: No Medical Review of Systems: unchanged Review of Systems Review of Systems Denies Mental Status Exam Mental Status Exam Patient Appearance: Appropriate Patient Orientation: Person, Place, Time and Situation Level of Consciousness: Alert Patient Behavior: Talkative and Good Eye Contact Mood Description: Constricted Affect Description: Constricted Patient Cognition Impaired: No Ability to Follow Directions: Good Speech Pattern: Spontaneous Speech Memory Description: Intact Hallucinations: None (denies today) Delusions: Not Present Thought Process: Distracted and Goal Oriented Thought Content: positive for Circumstantial, positive for Goal Oriented and positive for Suicidal Ideation (denies) Depressive Symptoms: Thoughts of /Suicide (denies), Low Self Esteem and Loss of Energy Judgement: Fair Diagnostics Vital Signs (24Hr): Vital Signs - 24 hr 05/08/25 16:03 05/08/25 20:00 05/08/25 20:49 Temperature 98 F Pulse Rate 108 H Respiratory Rate 16 Blood Pressure 102/60 107/57 L 107/57 L Pulse Oximetry 98 Oxygen Delivery Method Room Air 05/09/25 08:00 Temperature 97.4 F Pulse Rate 82 Respiratory Rate 18 Blood Pressure 113/56 L Pulse Oximetry 98 Oxygen Delivery Method Room Air BMI result Body Mass Index 18.9 Medications Medications Current Medications Acetaminophen (Acetaminophen 325 Mg Tablet) 650 mg PO Q6H PRN PRN Reason: Headache/Pain, Scale 1-10 Al Hydroxide/Mg Hydroxide (Magnesium Hydrox/Alum Hydrox 30 Ml Oral.Susp) 30 ml PO Q6H PRN PRN Reason: Heartburn/Nausea Last Admin: 05/04/25 16:07 Dose: 30 ml Calcium Carbonate (Calcium Carbonate 750 Mg Tab.Chew) 750 mg PO Q6H PRN PRN Reason: Heartburn Last Admin: 05/04/25 16:35 Dose: 750 mg Clonidine HCl (Clonidine Hcl 0.1 Mg Tablet) 0.1 mg PO BID PRN; Protocol PRN Reason: anxiety Last Admin: 05/08/25 20:49 Dose: 0.1 mg Diazepam (Diazepam 5 Mg Tablet) 10 mg PO TID PRN PRN Reason: Agitation Last Admin: 05/08/25 20:50 Dose: 10 mg Gabapentin (Gabapentin 600 Mg Tablet) 300 mg PO TID [facility] Last Admin: 05/09/25 08:14 Dose: 300 mg Hydroxyzine HCl (Hydroxyzine Hcl 25 Mg Tablet) 25 mg PO Q6H PRN PRN Reason: mild anxiety Last Admin: 05/04/25 20:33 Dose: 25 mg Lamotrigine (Lamotrigine 25 Mg Tablet) 25 mg PO BEDTIME [facility] Last Admin: 05/08/25 20:49 Dose: 25 mg Magnesium Hydroxide (Milk Of Magnesia 30 Ml Oral.Susp) 30 ml PO DAILY PRN PRN Reason: Constipation Nicotine (Nicotine 21 Mg Patch.Td24) 21 mg TRANSDERMA DAILY PRN PRN Reason: nicotine craving Nicotine Polacrilex (Nicotine Polacrilex 2 Mg Gum) 4 mg BUCCAL Q2H PRN PRN Reason: Nicotine Cravings Last Admin: 05/08/25 10:59 Dose: 4 mg Olanzapine (Olanzapine 5 Mg Tablet) 5 mg PO Q4H PRN PRN Reason: agitation/psychosis Oxycodone HCl (Oxycodone Hcl Immed Release 5 Mg Tablet) 5 mg PO Q8H PRN PRN Reason: severe pain Risperidone (Risperidone 1 Mg Tablet) 1 mg PO BID [facility] Last Admin: 05/09/25 08:15 Dose: 1 mg Trazodone HCl (Trazodone Hcl 50 Mg Tablet) 50 mg PO BEDTIME MRX1 PRN PRN Reason: Insomnia Last Admin: 05/07/25 20:50 Dose: 50 mg Allergies Allergies Allergy/AdvReac Type Severity Reaction Status Date / Time Latex, Natural Rubber Allergy Rash Verified 05/01/25 19:52 Assessment & Plan Assessment & Plan (1) Bipolar disorder: Status: Acute Code(s): F31.9 - Bipolar disorder, unspecified (2) Opioid use disorder, severe, dependence: Status: Acute Code(s): F11.20 - Opioid dependence, uncomplicated Plan Admit, CV, 15 minute checks Addiction Consult much appreciated, Methadone initiated Diagnostics as needed Collateral Contact Continue current regime Encourage milieu participation when feeling improved Discharge planning. 05/03/25: Lamictal 25 mg HS Risperdal 1 mg bid 05/04: continue current management and treatment plan. 05/05: continue current management and treatment plan. 05/06: Methadone tapering with addiction medicine Continue current psychotropic regime [facility] paperwork completed. 05/08: Continue tx 05/09: DC 05/11. Reason for continued inpatient stay Substantial Risk for: rapid decompensation Time Spent With Patient Time: Total time managing care of this patient today ____ minutes.
[2025-05-09 20:21] VITALS: BP 114/56; PULSE 96; RESP 16; TEMP 36.6; O2SAT 98
[2025-05-09 20:47] VITALS: BP 114/56
[2025-05-10 07:57] VITALS: BP 89/48; PULSE 91; RESP 18; TEMP 35.1; O2SAT 98
--- NOTE | 2025-05-10 09:54 | P.PNPSI_ITS ---
Subjective Subjective Date of Service: 05/10/25 Reason For Visit: bipolar 1 disorder, generalized anxiety d/o Subjective Notes: Conditional Voluntary Healthcare Proxy: No Guardianship: No Medical Problems Affecting Mental Status: No Interim History: Jaziel reports he is feeling well with discontinuation of Methadone. He denies adverse effects. He feels prepared to discharge on 05/11 and will continue Lamictal and Risperdal, planning to meet with his out pt team next week. He will continue on leave from work until 05/28 so he may continue to heal, manage scarring on his neck and have consultation to repair his front teeth. Medications were reviewed and he reports needing just the medications prescribed here as he has a supply at home from OP team. He denies SI,HI,AH,VH. There are n o sx of joseph or psychosis. He is social with select peers in the [facility] [place] and has attended some group programming. Medication Compliance: Yes Side effects from medications: No Attending Groups: Intermittent Review of Systems Acute medical concerns: No Medical Review of Systems: unchanged Review of Systems Review of Systems Denies Mental Status Exam Mental Status Exam Patient Appearance: Appropriate Patient Orientation: Person, Place, Time and Situation Level of Consciousness: Alert Patient Behavior: Talkative and Good Eye Contact Mood Description: Constricted Affect Description: Constricted Patient Cognition Impaired: No Ability to Follow Directions: Good Speech Pattern: Spontaneous Speech Memory Description: Intact Hallucinations: None (denies today) Delusions: Not Present Thought Process: Distracted and Goal Oriented Thought Content: positive for Circumstantial, positive for Goal Oriented and positive for Suicidal Ideation (denies) Depressive Symptoms: Thoughts of /Suicide (denies), Low Self Esteem and Loss of Energy Judgement: Fair Diagnostics Vital Signs (24Hr): Vital Signs - 24 hr 05/09/25 20:21 05/09/25 20:47 05/10/25 07:57 Temperature 97.9 F 95.2 F L Pulse Rate 96 91 Respiratory Rate 16 18 Blood Pressure 114/56 L 114/56 L 89/48 L Pulse Oximetry 98 98 Oxygen Delivery Method Room Air Room Air BMI result Body Mass Index 22.5 Medications Medications Current Medications Acetaminophen (Acetaminophen 325 Mg Tablet) 650 mg PO Q6H PRN PRN Reason: Headache/Pain, Scale 1-10 Al Hydroxide/Mg Hydroxide (Magnesium Hydrox/Alum Hydrox 30 Ml Oral.Susp) 30 ml PO Q6H PRN PRN Reason: Heartburn/Nausea Last Admin: 05/04/25 16:07 Dose: 30 ml Calcium Carbonate (Calcium Carbonate 750 Mg Tab.Chew) 750 mg PO Q6H PRN PRN Reason: Heartburn Last Admin: 05/04/25 16:35 Dose: 750 mg Clonidine HCl (Clonidine Hcl 0.1 Mg Tablet) 0.1 mg PO BID PRN; Protocol PRN Reason: anxiety Last Admin: 05/09/25 20:47 Dose: 0.1 mg Diazepam (Diazepam 5 Mg Tablet) 10 mg PO TID PRN PRN Reason: Agitation Last Admin: 05/10/25 09:12 Dose: 10 mg Gabapentin (Gabapentin 600 Mg Tablet) 300 mg PO TID [facility] Last Admin: 05/10/25 08:31 Dose: 300 mg Hydroxyzine HCl (Hydroxyzine Hcl 25 Mg Tablet) 25 mg PO Q6H PRN PRN Reason: mild anxiety Last Admin: 05/04/25 20:33 Dose: 25 mg Lamotrigine (Lamotrigine 25 Mg Tablet) 25 mg PO BEDTIME [facility] Last Admin: 05/09/25 20:47 Dose: 25 mg Magnesium Hydroxide (Milk Of Magnesia 30 Ml Oral.Susp) 30 ml PO DAILY PRN PRN Reason: Constipation Nicotine (Nicotine 21 Mg Patch.Td24) 21 mg TRANSDERMA DAILY PRN PRN Reason: nicotine craving Nicotine Polacrilex (Nicotine Polacrilex 2 Mg Gum) 4 mg BUCCAL Q2H PRN PRN Reason: Nicotine Cravings Last Admin: 05/09/25 12:30 Dose: 4 mg Olanzapine (Olanzapine 5 Mg Tablet) 5 mg PO Q4H PRN PRN Reason: agitation/psychosis Oxycodone HCl (Oxycodone Hcl Immed Release 5 Mg Tablet) 5 mg PO Q8H PRN PRN Reason: severe pain Risperidone (Risperidone 1 Mg Tablet) 1 mg PO BID [facility] Last Admin: 05/10/25 08:32 Dose: 1 mg Trazodone HCl (Trazodone Hcl 50 Mg Tablet) 50 mg PO BEDTIME MRX1 PRN PRN Reason: Insomnia Last Admin: 05/07/25 20:50 Dose: 50 mg Allergies Allergies Allergy/AdvReac Type Severity Reaction Status Date / Time Latex, Natural Rubber Allergy Rash Verified 05/01/25 19:52 Assessment & Plan Assessment & Plan (1) Bipolar disorder: Status: Acute Code(s): F31.9 - Bipolar disorder, unspecified (2) Opioid use disorder, severe, dependence: Status: Acute Code(s): F11.20 - Opioid dependence, uncomplicated Plan Admit, CV, 15 minute checks Addiction Consult much appreciated, Methadone initiated Diagnostics as needed Collateral Contact Continue current regime Encourage milieu participation when feeling improved Discharge planning. 05/03/25: Lamictal 25 mg HS Risperdal 1 mg bid 05/04: continue current management and treatment plan. 05/05: continue current management and treatment plan. 05/06: Methadone tapering with addiction medicine Continue current psychotropic regime FMLA paperwork completed. 05/08: Continue tx 05/09: DC 05/11. 05/10: Discharge 05/11. Reason for continued inpatient stay Substantial Risk for: stable for discharge Time Spent With Patient Time: Total time managing care of this patient today ____ minutes.
[2025-05-10 19:00] VITALS: BP 119/57
[2025-05-10 20:00] VITALS: BP 112/57; PULSE 108; TEMP 36.7; O2SAT 100
[2025-05-11 08:00] VITALS: BP 109/54; PULSE 79; RESP 20; TEMP 36.1; O2SAT 94
--- NOTE | 2025-05-11 08:46 | PM.PSYDC ---
DS: Providers Provider Date of admission: 05/01/25 19:24 Primary care physician: Unknown Physician Consults: 05/01/25 19:56 Consult to Hospitalist Routine Comment: Consulting Provider: [facility] Hospitalists Reason For Exam: New external admit- H&P 05/02/25 09:34 Addiction Medicine Provider Routine Consulting Provider: Addiction Covering Reason for consultation: Opiate Withdrawal Symptoms Has provider been notified: Yes DS: Diagnosis Discharge Diagnosis (1) Bipolar disorder: Status: Acute (2) Opioid use disorder, severe, dependence: Status: Acute DS: Medications Discharge Medications Home Medications: Home Medications ?Medication ?Instructions ?Recorded ?Confirmed clonidine HCl 0.3 mg tablet 0.3 mg PO TID PRN Anxiety 05/01/25 05/01/25 diazepam 10 mg tablet 10 mg PO TID PRN Agitation 05/01/25 05/01/25 gabapentin 600 mg tablet 300 mg PO TID 05/01/25 05/01/25 Previous Rx's ?Medication ?Instructions ?Recorded lamotrigine 25 mg tablet 25 mg PO BEDTIME #30 tabs 05/10/25 risperidone 1 mg tablet 1 mg PO BID #60 tabs 05/10/25 DS: Summary Time Spent with Patient Time attestation: Total time managing care of this patient today ____ minutes. Discharge Plan Discharge Anticipated Discharge Date/Time: 05/11/25 12:00 Patient Disposition: Home, Self-Care Discharge Diagnosis: Bipolar Disorder Opiate Use Disorder Referrals: [facility]: Alberto Gaitan [Other] - 05/15/25 2:15 pm Referral Note: Hospital discharge appointment with psychiatric medication provider Appointment is virtual, but if you would like you are able to call and request an in person appointment. Physician,Unknown J [Primary Care Provider, Medical] - 1 Week Discharge Medications: New lamotrigine 25 mg Tablet 25 mg PO BEDTIME Qty: 30 0RF risperidone 1 mg Tablet 1 mg PO BID Qty: 60 0RF Continued gabapentin 600 mg tablet 300 mg PO TID clonidine HCl 0.3 mg tablet 0.3 mg PO TID PRN (Reason: Anxiety) diazepam 10 mg tablet 10 mg PO TID PRN (Reason: Agitation) Discontinued oxycodone 5 mg tablet 5 mg PO Q8H PRN (Reason: severe pain) clonidine HCl 0.3 mg tablet 0.3 mg PO TID diazepam 10 mg tablet 10 mg PO TID PRN (Reason: Agitation) diazepam 10 mg tablet 10 mg PO TID PRN (Reason: Anxiety) Discharge Orders: Discharge Order (Routine); Ordered 05/11/25 Ordered By: Harini Darling Diet: Advance to usual diet Activity on Discharge: As tolerated Stand Alone Forms: Patient Portal Discharge page Print Language: R[place] Care Plan Goals: Abstinence from substances Mood and Behavioral Stabilization Health Concerns: Abstinence from substances Mood and Behavioral Stabilization Plan of Treatment: Attend scheduled appointments Reconnect with your recovery community as you discussed Take medications as directed Assessment: Denies SI,HI,AH,VH No sx of overt joseph or psychosis Agrees with plan of care
== END 2025-05-11 11:40 | disposition home or self-care (01) | DRG 753 ==
PROVIDERS: Admitting Provider Psychiatry & Neurology Psychiatry; Visit Provider Psychiatry & Neurology Psychiatry
DX: F31.9 Bipolar disorder, unspecified (principal); F11.23 Opioid dependence with withdrawal; F19.90 Other psychoactive substance use, unspecified, uncomplicated; Z91.51 Personal history of suicidal behavior; Z79.899 Other long term (current) drug therapy

== ENCOUNTER → 2025-05-01 19:24 | Outpatient (BNV) | payer OTHER, SELFPAY | PROVIDERS: Admitting Provider Psychiatry & Neurology Psychiatry; Visit Provider Nurse Practitioner Family | DX: Z00.8 Encounter for other general examination (principal) | CPT/HCPCS: 99429 ==

== ENCOUNTER → 2025-05-01 19:24 | Outpatient (BNV) | payer OTHER, SELFPAY | PROVIDERS: Admitting Provider Psychiatry & Neurology Psychiatry; Visit Provider Nurse Practitioner Psychiatric/Mental Health | DX: F11.20 Opioid dependence, uncomplicated (principal) | CPT/HCPCS: 99222 ==